=== PATIENT | female | born 1940 | race Caucasian/White ===

== ENCOUNTER 2017-07-05 05:57 | Emergency (ER) | payer OTHER, MEDICAID ==
[~2017-07-05] VITALS: Ht 170.2 cm; Wt 77.1 kg
[~2017-07-05 05:57] MED LIST: AMI200T PO; ASPI81CH43 PO; ATOR20TA50 PO; DOCU100C8 PO; FURO40TA4 PO; LISI-275 PO; LORA2TAB10 PO; MET25T PO; POTA20TA53 PO
[2017-07-05 06:09] VITALS: BP 143/84
[2017-07-05] MEDS ORDERED: HYDROcodone-ACET 10/325MG TAB PO ONE (07:15)
== END 2017-07-05 08:37 | disposition home or self-care (01) ==
LOC: EDBD 05:57 → ER 06:02
DX: M25.562 Pain in left knee (principal); I25.810 Atherosclerosis of coronary artery bypass graft(s) without angina pectoris; I10 Essential (primary) hypertension; I25.2 Old myocardial infarction; Z95.1 Presence of aortocoronary bypass graft; Z88.1 Allergy status to other antibiotic agents; Z79.82 Long term (current) use of aspirin
CPT/HCPCS: 29505; 73562